=== PATIENT | female | born 1995 ===

== ENCOUNTER 2021-05-08 16:04 | Emergency (ER) | payer OTHER ==
[~2021-05-08] VITALS: Ht 160 cm; Wt 95.2 kg
== END 2021-05-08 16:50 | disposition home or self-care (01) ==
LOC: ER 16:04
DX: O98.512 Other viral diseases complicating pregnancy, second trimester (principal); U07.1 COVID-19; Z3A.19 19 weeks gestation of pregnancy; Z88.0 Allergy status to penicillin
CPT/HCPCS: 99284

== ENCOUNTER → 2022-02-02 | Outpatient (CLI) | payer OTHER ==
[~2022-02-02] MED LIST: ASPI81CH PO; LABE100 PO; LABE200 PO; PRENATAL TABLE1 EAC2 PO; SERT50
== END | disposition home or self-care (01) ==
LOC: LAB 17:45 → LAB SHORT 17:45
DX: H10.229 Pseudomembranous conjunctivitis, unspecified eye (principal)
CPT/HCPCS: 87070; 87205

== ENCOUNTER → 2023-08-11 | Outpatient (CLI) | payer OTHER ==
[2023-08-11 11:57] LABS: BASOPHILS ABSOLUTE AUTO 0.09 K/mm3 (0.00-0.23); BASOPHILS PERCENT AUTO 1 % (0-2); EOSINOPHILS ABSOLUTE AUTO 0.23 K/mm3 (0.00-0.68); EOSINOPHILS PERCENT AUTO 2 % (0-6); Hematocrit 38.9 % (33.0-51.0); Hemoglobin 12.7 g/dL (11.5-16.0); IMMATURE GRAN ABSOLUTE AUTO 0.05 K/mm3 (0.00-0.10); IMMATURE GRAN PERCENT AUTO 1 % (0-1); LYMPHOCYTES ABSOLUTE AUTO 2.55 K/mm3 (0.84-5.20); LYMPHOCYTES PERCENT AUTO 26 % (21-46); MONOCYTES ABSOLUTE AUTO 0.52 K/mm3 (0.16-1.47); MONOCYTES PERCENT AUTO 5 % (4-13); Mean Corpuscular HGB 27.3 pg (26.0-34.0); Mean Corpuscular HGB Conc 32.6 g/dL (31.5-36.5); Mean Corpuscular Volume 84 fL (80-100); Mean Platelet Volume 9.6 fL (9.1-12.4); NEUTROPHILS ABSOLUTE AUTO 6.44 K/mm3 (1.96-9.15); NEUTROPHILS PERCENT AUTO 65 % (41-73); Platelet Count 274 K/mm3 (150-400); RDW Coefficient Variation 14.1 % (11.7-14.2); RDW Standard Deviation 43.2 fL (35.1-46.3); Red Blood Cell Count 4.66 M/mm3 (3.80-5.20); White Blood Cell Count 9.88 K/mm3 (4.00-11.30)
== END | disposition home or self-care (01) ==
LOC: LAB 11:15 → LAB SHORT 11:15
PROVIDERS: Physician Assistant
DX: R42 Dizziness and giddiness (principal)
CPT/HCPCS: 85025

== ENCOUNTER 2024-04-17 16:36 | Emergency (ER) | payer OTHER ==
[~2024-04-17] VITALS: Ht 165.1 cm; Wt 102.1 kg
[2024-04-17] MEDS ORDERED: [UNRECOGNIZED DRUG - OTHER] IV ONE (16:48)
[2024-04-17] MEDS ORDERED: MAGNESIUM SUL IV ONE (16:48)
[2024-04-17] MEDS ORDERED: EPINEPHrine HCL 11.25 MG/0.5 ML VIAL ONE (16:53)
[2024-04-17 16:57] LABS: Calcium, Ionized (POC) 1.19 mmol/L (1.10-1.46); Chloride (POC) 106 mmol/L (98-108); Creatinine (POC) 0.9 mg/dL (0.6-1.0); Glucose (ISTAT POC) 158 mg/dL (70-99); Hemoglobin (POC) 14.3 g/dL (12.0-16.0); Potassium (POC) 4.3 mmol/L (3.5-5.5); Sodium (POC) 144 mmol/L (135-148); Total CO2 (POC) 30 mmol/L (21-32)
--- NOTE | 2024-04-17 19:12 | NUR ---
"SPiritual Care | EOL Callback - [facility] Pt. had coded and passed. Mom and sister are at bedside cathartically grieving. Facilitated a very lengthy life review and at a couple of approriate moments blessed the Pt.l and prayed for the family. This plant technician stayed with family until emotions subsided. This plant technician assisted the family with water and placing a blanket from home on the Pt. Family has chosen [facility] as their home. The family verbalized gratitude for the spiritual care support."
[2024-04-17] MEDS ORDERED: Sodium Bicarb 8.4% 1 MEQ/ML 50 ML Vial IV ONE (23:05)
[2024-04-17] MEDS ORDERED: Ketamine HCl 100 MG / ML 5ML Vial XX ONE (23:05)
[2024-04-17] MEDS ORDERED: LORazepam 2 MG/ML 1ML Injection IV ONE (23:05)
[2024-04-17] MEDS ORDERED: Magnesium Sulfate 500 MG / ML 2ML Vial XX ONE (23:05)
[2024-04-17] MEDS ORDERED: Rocuronium Bromide 10 MG/ML 5ML Injection IV ONE (23:05)
[2024-04-17] MEDS ORDERED: Etomidate 2MG / ML 10ML Vial XX ONE (23:05)
[2024-04-17] MEDS ORDERED: EPINEPhrine HCl 0.1 MG/ML 10ML SYR XX ONE (23:05)
[2024-04-17] MEDS ORDERED: Calcium Chloride 10% 10 ML SYR IV ONE (23:05)
== END 2024-04-17 21:20 ==
LOC: ER 16:36
DX: J96.91 Respiratory failure, unspecified with hypoxia (principal); Z79.82 Long term (current) use of aspirin; Z79.899 Other long term (current) drug therapy; Z88.0 Allergy status to penicillin
CPT/HCPCS: 31500; 80047; 85014; 92950; 99285-25; J2060; J3475